=== PATIENT | female | born 1995 | race Caucasian/White ===

== ENCOUNTER 2019-01-22 00:51 | Inpatient (IN) | payer OTHER ==
[~2019-01-22] VITALS: Ht 157.5 cm; Wt 83.5 kg
--- NOTE | 2019-01-22 01:02 | NUR ---
SE RECIBE PTE LA CUAL PRESENTA DOLOR ABD EN RLQ EL CUAL ES PUNZANTE DESDE HACE UNAS HORAS. PTE INDICA QUE EL MISMO SE PODIA TOLERAR ISA AUMENTA CADA VEZ AL IGUAL QUE LAS NAUSEAS.
--- NOTE | 2019-01-22 03:00 | NUR ---
PACIENTE ALERTA Y ORIENTADA X3, CON BUEN PATRON RESPIRATORIO Y SIGNOS VITALES ESTABLES, REFIERE LEVE DOLOR EN EL ABDOMEN. SE ABRE VENA CON ANGIO #20 PATENTE Y SHAUNNA DE EDEMA SE RAJINDER MUESTRAS BAJO MEDIDAS ASEPTICAS CBC,CMP, PT, PT+INR,U/A Y HCG QUANTITATIVE. SE ADMINISTRAN MEDICAMENTOS ORDENADOS PHENERGAN 50MG IM Y DEMEROL 50MG IM. SE COLOCA UN 0.9NSS AT 200ML/HR. Y SE LE ADMINISTRA GASTROVIEW.
--- NOTE | 2019-01-22 07:43 | NUR ---
SE RECIBE PTE ALERTA Y ORIENTADA EN LAS 3 ESFERAS EN CAMA CON BARANDAS ELEVADAS POR SEGURIDAD. PIEL TIBIA AL TACTO. PTE CON BUEN PATRON RESPIRATORIO. RECIBIENDO IV'S 0.9NSS BAJANDO 175ML/HR POR VENOPUNCION EN ANTEBRAZO DERECHO, AREA SHAUNNA DE EDEMA Y ERITEMA. PTE ADMITIDA PARA SADIA DE OPERACIONES. SE ORIENTA A PTE SOBRE PRE-OPERATORIO. PTE REFIERE COMPRENDER. SE PROVEE VESTIMENTA PARA SADIA DE OPERACIONES Y SE CAMBIA A PTE. SE GERA A PTE EN CAMA CON BARANDAS ELEVADAS POR SEGURIDAD EN ESPERA PARA TRASLADO A SADIA DE OPERACIONES. SE ENTREGA PERTENENCIAS DE PTE A FAMILIAR.
== END 2019-01-23 12:44 | disposition home or self-care (01) | DRG 343 ==
LOC: ER 00:51 → SEC-K 05:42 → SURH 09:56
PROVIDERS: ADMIT Surgery
PROC: BW21ZZZ Computerized Tomography (CT Scan) of Abdomen and Pelvis (ICD-10-PCS; 2019-01-22)
PROC: 0DTJ4ZZ Resection of Appendix, Percutaneous Endoscopic Approach (ICD-10-PCS; principal; 2019-01-22 07:00)
DX: K35.890 Other acute appendicitis without perforation or gangrene (principal)

== ENCOUNTER → 2019-11-23 | Outpatient (CLI) | payer OTHER | END | disposition home or self-care (01) | LOC: PRENATAL 13:30 | DX: O35.3XX0 Maternal care for (suspected) damage to fetus from viral disease in mother, not applicable or unspecified (principal) ==

== ENCOUNTER 2020-01-18 07:49 | Inpatient (IN) | payer OTHER ==
[~2020-01-18] VITALS: Ht 167.6 cm; Wt 100.7 kg
[2020-01-19] MEDS ORDERED: NIVA-PLUS TABL1 EACH (08:03)
[2020-01-21] MEDS ORDERED: PERCOCET 5-3251 EACH PO (09:05)
== END 2020-01-21 13:39 | disposition home or self-care (01) | DRG 788 ==
LOC: OB/GYN 07:49 → LDR 07:49 → O/R 14:19 → OB/GYN 15:07
PROVIDERS: ADMIT Specialist
PROC: 4A1HXCZ Monitoring of Products of Conception, Cardiac Rate, External Approach (ICD-10-PCS; 2020-01-18)
PROC: 10D00Z1 Extraction of Products of Conception, Low, Open Approach (ICD-10-PCS; principal; 2020-01-18 14:00)
DX: O65.8 Obstructed labor due to other maternal pelvic abnormalities (principal); Z3A.39 39 weeks gestation of pregnancy; Z37.0 Single live birth